=== PATIENT | male | born 1940 | race Caucasian/White ===

== ENCOUNTER → 2021-05-15 13:07 | Outpatient (CLI) | payer MEDICARE, MEDICAID, SELFPAY ==
--- NOTE | 2021-05-15 13:29 | FL_ITS ---
PROCEDURE: FL BARIUM SWALLOW MODIFIED CLINICAL INDICATION: hx throat cancer COMPARISON: No exams were available for comparison TECHNIQUE: Patient administered varying consistencies of barium contrast, while viewed in lateral position under real-time fluoroscopy with cine recording. FLUOROSCOPY TIME:2 minutes and 12 seconds The study was performed in conjunction with speech pathologist. Please see that report & recommendations. FINDINGS: Patient was given varying consistencies of barium. The patient refused to swallow any of the consistencies and spit out all consistencies given.. IMPRESSION: Patient refused to swallow therefore, modified barium swallow was not able to be performed Please see speech pathologist report and recommendations. Dictated by: Skyler Jimenez MD 05/26/2021 08:51 Skyler Jimenez MD in [place] 05/26/2021 08:51
--- NOTE | 2021-05-15 14:10 | HMH.SLMBS2 ---
Speech & Language Evaluation Speech/Language Mod Barium Swallow Start: 05/15/21 14:03 Freq: once Status: Complete Protocol: Document 05/15/21 14:03 SUHA (Rec: 05/15/21 14:10 SUHA [id number]) General Information General Current Food Consistancy NPO Dentition Poor Dentition Oxygen Status Room Air Ability to Follow Directions Poor Communication Ability Severe Impairment MBS Recommendations Diet Dietary Recommendations NPO Mod Barium Swallow Impressions Summary and Impressions Oral Phase Summary Patient was given the following consistencies: thins , honey, pudding, pureed. Patient impairment is unknown at this time. Patient refused all consistencies. He spit all consistencies out onto his shirt. Pharyngeal Phase Summary Pharyngeal phase impairment unknown at this time. Speech/Language MBS Assessment/Goals/Plan Assessment Date of Evaluation: 05/15/21 Evaluation Type Initial Certification Assessment/Problems Dysphagia- determine least restrictive diet. Does Patient Qualify for Service No Qualify/Failure Comment Patient is a resident of a SNF in [place], [place]. Recommendations PHYSICIAN CERTIFICATION: The specified therapy services are required, authorized, and reviewed every 30 days. Diet Recommendations G-tube feedings Plan Pt/Guardian verbally ack understanding Yes: POA notified of dx/prognosis/goals G -code Required No Mod Barium Swallow Setup Exam Setup Radiologist Skyler Jimenez Level of Consciousness Drowsy Position (degrees) 90 Mod Barium Swallow-Lat View Textures Lateral View Food Presentation Thin Liquid via Spoon,Honey Liquid via Spoon,Pureed Food- Thick,Pudding Comment Patient did not attempt to swallow consistencies. Patient impairments unknown at this time. PHYSICIAN CERTIFICATION: I certify the specified therapy services for William Gaitan are required, authorized, and reviewed every 30 days.
== END ==
PROVIDERS: PCP Family Medicine; Visit Provider Family Medicine
DX: R13.10 Dysphagia, unspecified (principal)
CPT/HCPCS: 70371; 92611

== ENCOUNTER → 2021-05-28 13:00 | Outpatient (CLI) | payer MEDICARE, MEDICAID, SELFPAY | PROVIDERS: PCP Family Medicine; Visit Provider Family Medicine | DX: R13.10 Dysphagia, unspecified (principal) ==